=== PATIENT | female | born 1940 | race Caucasian/White ===

== ENCOUNTER 2024-07-26 06:52 | Day surgery (SDC) | payer MEDICARE, OTHER, SELFPAY | END 2024-07-26 09:05 | disposition home or self-care (01) | LOC: CATH 06:52 | PROVIDERS: ATTENDING PHYSICIAN Internal Medicine Cardiovascular Disease; FAMILY PHYSICIAN Nurse Practitioner Adult Health; OTHER PHYSICIAN Internal Medicine Cardiovascular Disease | DX: I48.19 Other persistent atrial fibrillation (principal); I10 Essential (primary) hypertension; E78.5 Hyperlipidemia, unspecified; K21.9 Gastro-esophageal reflux disease without esophagitis; J44.9 Chronic obstructive pulmonary disease, unspecified; Z87.891 Personal history of nicotine dependence; Z85.828 Personal history of other malignant neoplasm of skin; Z79.01 Long term (current) use of anticoagulants | CPT/HCPCS: 93312; 93320; 93325 ==

== ENCOUNTER 2024-08-13 06:20 | Day surgery (SDC) | payer MEDICARE, OTHER, SELFPAY ==
[2024-08-13] VITALS (10 sets, daily range): BP systolic 114–200; BP diastolic 49–101; BMI 22.5
== END 2024-08-13 11:30 | disposition home or self-care (01) ==
LOC: SDS 06:20
PROVIDERS: ATTENDING PHYSICIAN Internal Medicine Critical Care Medicine
DX: R91.1 Solitary pulmonary nodule (principal); J84.09 Other alveolar and parieto-alveolar conditions; R59.0 Localized enlarged lymph nodes
CPT/HCPCS: 31629; 31624; 31623; 31627; 31628; 31652; 31654; 88173; 88305; 71045; 76000; 87015; 87070; 87077; 87102; 87116; 87185; 87205; 88112; 94640; C1887

== ENCOUNTER → 2024-10-31 09:46 | Outpatient (REF) | payer MEDICARE, OTHER, SELFPAY ==
[2024-10-31 10:48] LABS: % Basophils 0.6 % (0-2); % Lymphocytes 20.3 % (20.5-51.1); % Monocytes 7.8 % (1.7-9.3); % Neutrophils 68.3 % (42.2-75.2); Absolute Eosinophils 0.2 10^3/uL (0-0.7); Absolute Monocytes 0.4 10^3/uL (0.1-0.6); Absolute Neutrophils 3.4 10^3/uL (1.4-6.5); Hematocrit 33.6 % (37.0-47.0); Hemoglobin 11.6 g/dL (12.0-16.0); Mean Corp Hgb Conc. 34.5 g/dL (33.0-37.0); Mean Corpuscular Hgb 30.7 pg (27.0-31.0); Mean Corpuscular Volume 88.9 fL (81.0-99.0); Mean Platelet Volume 10.1 fL (7.4-10.4); Nucleated Red Blood Cells % 0 %; Platelet Count 210 10^3/uL (130-400); Red Blood Cell Count 3.78 10^6/uL (4.20-5.40); Red Cell Dist. Width 13.2 % (11.5-14.5)
[2024-10-31 10:54] LABS: INR 1.03
[2024-10-31 11:36] LABS: ALT (SGPT) 21 U/L (0-35); AST (SGOT) 30 U/L (14-36); Albumin 4.5 g/dl (3.5-5.0); Alkaline Phosphatase 88 U/L (38-126); Blood Urea Nitrogen 17 mg/dl (7-17); Calcium 9.7 mg/dl (8.4-10.2); Carbon Dioxide 27 mmol/L (22-30); Chloride 98 mmol/L (98-107); Glucose 103 mg/dl (70-99); Magnesium 1.7 mg/dl (1.6-2.3); Potassium 4.4 mmol/L (3.5-5.1); Sodium 135 mmol/L (135-145); Total Bilirubin 0.7 mg/dl (0.2-1.3); Total Protein 7.8 g/dl (6.3-8.2); eGFR 56.25
== END ==
LOC: SDSPAT 09:46
PROVIDERS: ATTENDING PHYSICIAN Internal Medicine Cardiovascular Disease; FAMILY PHYSICIAN Nurse Practitioner Adult Health; OTHER PHYSICIAN Internal Medicine Cardiovascular Disease
DX: I48.91 Unspecified atrial fibrillation (principal)
CPT/HCPCS: 36415; 80053; 83735; 85025; 85610; 86850; 86900; 86901; 93005

== ENCOUNTER → 2024-11-05 12:16 | Outpatient (REF) | payer MEDICARE, OTHER, SELFPAY | LOC: HWWDC 12:16 | PROVIDERS: ATTENDING PHYSICIAN Internal Medicine Critical Care Medicine; REFERRING PHYSICIAN Nurse Practitioner Adult Health | DX: Z12.31 Encounter for screening mammogram for malignant neoplasm of breast (principal); R91.8 Other nonspecific abnormal finding of lung field | CPT/HCPCS: 71250; 77063; 77067 ==

== ENCOUNTER 2024-11-13 07:52 | Day surgery (SDC) | payer MEDICARE, OTHER, SELFPAY ==
--- NOTE | 2024-11-09 08:57 | HPS.HSE ---
Family Physician
-
Family Physician: NO INTERVIEW UNKNOWN
Chief Complaint
-
Persistent atrial fibrillation.
History of Present Illness
The patient is a 84-year-old female presenting today for persistent atrial fibrillation. The patient reports a wide variety of symptoms associated with this diagnosis. Noted symptoms include palpitations, shortness of breath, fatigue, and
decreased exercise tolerance. She previously underwent a JODY-guided cardioversion in December 2022 secondary to this diagnosis. She is on current pharmacological therapy with Metoprolol Succinate. She reports she has been compliant with Eliquis for oral
anticoagulation due to a [id number] of 4. She notes that her current symptoms greatly interfere with her activities of daily living and overall impact her quality of life. She is interested in pursuing with pulmonary vein isolation for further
arrhythmia management but will proceed first with a transesophageal echocardiogram to officially rule out a left atrial appendage thrombus. She denies any current complaints today such as chest pain and shortness of breath at rest, nausea, vomiting,
diarrhea, lightheadedness, dizziness, cough, sore throat, or fever.
Medical History
Past Medical History
Past Medical History: Reports Other
Additional Past Medical History:
1. Persistent atrial fibrillation, status post JODY-guided cardioversion 12/2022; pharmacological therapy with Metoprolol Succinate and oral anticoagulation with Eliquis.
2. Hypertension, on multi-drug regimen.
3. Hyperlipidemia.
4. Aortic atherosclerosis.
5. Mild-moderate tricuspid regurgitation.
6. COPD per chest x-ray 2018.
7. Bilateral pulmonary nodules on pre-ablation chest CT; recent bronchoscopy negative for malignancy.
8. Interstitial lung disease.
9. Chronic kidney disease stage 3.
10. GERD.
11. Celiac sprue.
12. Basal cell carcinoma, right cheek, status post Mohs.
13. Chronic anemia.
14. Macular degeneration.
15. Osteopenia.
16. Remote history of tobacco abuse.
Past Surgical History: Reports Other
Additional Past Surgical History:
1. JODY-guided cardioversion.
2. Mohs.
3. Oral surgery.
4. Bilateral cataract extraction.
5. Colonoscopy x3.
6. Endoscopy x5.
7. Bronchoscopy.
Social History
Tobacco: Former Smoker (Former 1 pack per day cigarette smoker who quit tobacco altogether remotely. )
Alcohol: Other (Rare use reported.)
Living: With Family (in a 1 story in-law suite.)
Family History
Family History: Not pertinent
Allergies / Home Medications
Allergy/Medication List:
Home medications:
1. Apixaban 2.5 mg p.o. twice a day.
2. Cholecalciferol 25 mcg p.o. daily.
3. Hydrochlorothiazide 25 mg p.o. daily.
4. Lisinopril 40 mg p.o. daily.
5. Metoprolol Succinate 25 mg p.o. every evening.
6. Multivitamin 1 tablet p.o. daily.
7. Omeprazole 20 mg p.o. daily.
8. Rosuvastatin 5 mg p.o. every evening.
9. PreserVision 1 tablet p.o. twice a day.
Allergies: Penicillin. Gluten. Reeves juice.
Review of Systems
-
A 12 point ROS was completed and negative except as noted: Yes
Physical Exam
Vital Signs
Blood pressure 164/84. Heart rate 77. Respirations 18. Pulse ox 99% on room air.
Height 5 feet, 3 inches. Weight 57.2 kg. BMI 22.3.
Physical Exam
General: Well Developed, Well Nourished and No Apparent Distress
HEENT: NormoCephalic, Moist mucous membranes and Atraumatic
Respiratory: Clear
Cardiac: Irregular Rhythm
GI: Soft, Non Tender and Non Distended
Musculoskeletal: No Edema and Normal Gait & Station
Skin: Warm and Dry
Neuro: AO x 3 and Nonfocal/grossly intact
Laboratory Results
-
DIAGNOSTIC STUDIES of 10/31/2024: White blood cell count 5.0. Hemoglobin 11.6. Platelet count 210,000. PT 14.0. INR 1.03. Sodium 135. Potassium 4.4. BUN 17. Creatinine 1.0. Glucose 103. Calcium 9.7. Magnesium 1.7. AST 30. ALT 21. Albumin 4.5. Type
and screen O positive.
EKG 10/31/2024: Atrial fibrillation. Nonspecific T wave abnormality.
Impression/Plan
-
IMPRESSION/PLAN:
1. Persistent atrial fibrillation: The patient is in need of pulmonary vein isolation for further arrhythmia management. Prior to her ablation, she will first undergo a pre-procedural transesophageal echocardiogram with Dr. Prince Ewing on 11/13/2024
to officially rule out a left atrial appendage thrombus. The benefits and risks the procedure have been explained to the patient. The patient understands these risks and is willing to proceed. She is aware to continue compliance with her Eliquis
prior to her procedure.
== END 2024-11-13 09:30 | disposition home or self-care (01) ==
LOC: CATH 07:52
PROVIDERS: ATTENDING PHYSICIAN Nuclear Medicine Nuclear Cardiology; FAMILY PHYSICIAN Nurse Practitioner Adult Health; OTHER PHYSICIAN Internal Medicine Cardiovascular Disease
DX: I48.19 Other persistent atrial fibrillation (principal); I08.3 Combined rheumatic disorders of mitral, aortic and tricuspid valves; I70.0 Atherosclerosis of aorta; E78.5 Hyperlipidemia, unspecified; I12.9 Hypertensive chronic kidney disease with stage 1 through stage 4 chronic kidney disease, or unspecified chronic kidney disease; J44.9 Chronic obstructive pulmonary disease, unspecified; M85.80 Other specified disorders of bone density and structure, unspecified site; N18.30 Chronic kidney disease, stage 3 unspecified; Z79.01 Long term (current) use of anticoagulants; Z79.899 Other long term (current) drug therapy; Z85.828 Personal history of other malignant neoplasm of skin; Z88.0 Allergy status to penicillin; Z87.891 Personal history of nicotine dependence; K90.0 Celiac disease; H35.30 Unspecified macular degeneration; K21.9 Gastro-esophageal reflux disease without esophagitis; J84.9 Interstitial pulmonary disease, unspecified
CPT/HCPCS: 93312; 93320; 93325

== ENCOUNTER 2024-11-14 08:23 | Day surgery (SDC) | payer MEDICARE, OTHER, SELFPAY ==
[2024-10-31 09:58] VITALS: BMI 22.3
--- NOTE | 2024-10-31 10:27 | HPS.HSE ---
Family Physician
-
Family Physician: NO INTERVIEW UNKNOWN
Chief Complaint
-
Persistent atrial fibrillation.
History of Present Illness
The patient is a 84-year-old female presenting today for persistent atrial fibrillation. The patient reports a wide variety of symptoms associated with this diagnosis. Noted symptoms include palpitations, shortness of breath, fatigue, and
decreased exercise tolerance. She previously underwent a JODY-guided cardioversion in December 2022 secondary to this diagnosis. She is on current pharmacological therapy with Metoprolol Succinate. She reports she has been compliant with Eliquis for oral
anticoagulation due to a [id number] of 4. She notes that her current symptoms greatly interfere with her activities of daily living and overall impact her quality of life. She is interested in pursuing with pulmonary vein isolation for further
arrhythmia management. She was initially scheduled for this procedure in July 2024; however, she was noted to have numerous bilateral pulmonary nodules on her pre-ablation chest CT. Fortunately, she has been evaluated by pulmonary. Her most
recent bronchoscopy was negative for malignancy. She denies any current complaints today such as chest pain and shortness of breath at rest, nausea, vomiting, diarrhea, lightheadedness, dizziness, cough, sore throat, or fever.
Medical History
Past Medical History
Past Medical History: Reports Other
Additional Past Medical History:
1. Persistent atrial fibrillation, status post OJDY-guided cardioversion 12/2022; pharmacological therapy with Metoprolol Succinate and oral anticoagulation with Eliquis.
2. Hypertension, on multi-drug regimen.
3. Hyperlipidemia.
4. Aortic atherosclerosis.
5. Mild-moderate tricuspid regurgitation.
6. COPD per chest x-ray 2018.
7. Bilateral pulmonary nodules on pre-ablation chest CT; recent bronchoscopy negative for malignancy.
8. Interstitial lung disease.
9. Chronic kidney disease stage 3.
10. GERD.
11. Celiac sprue.
12. Basal cell carcinoma, right cheek, status post Mohs.
13. Chronic anemia.
14. Macular degeneration.
15. Osteopenia.
16. Remote history of tobacco abuse.
Past Surgical History: Reports Other
Additional Past Surgical History:
1. JODY-guided cardioversion.
2. Mohs.
3. Oral surgery.
4. Bilateral cataract extraction.
5. Colonoscopy x3.
6. Endoscopy x5.
7. Bronchoscopy.
Social History
Tobacco: Former Smoker (Former 1 pack per day cigarette smoker who quit tobacco altogether remotely. )
Alcohol: Other (Rare use reported. )
Living: With Family (in a 1 story in-law suite.)
Family History
Family History: Not pertinent
Allergies / Home Medications
Allergy/Medication List:
Home medications:
1. Apixaban 2.5 mg p.o. twice a day.
2. Cholecalciferol 25 mcg p.o. daily.
3. Hydrochlorothiazide 25 mg p.o. daily.
4. Lisinopril 40 mg p.o. daily.
5. Metoprolol Succinate 25 mg p.o. every evening.
6. Multivitamin 1 tablet p.o. daily.
7. Omeprazole 20 mg p.o. daily.
8. Rosuvastatin 5 mg p.o. every evening.
9. PreserVision 1 tablet p.o. twice a day.
Allergies: Penicillin. Gluten. Carter juice.
Review of Systems
-
A 12 point ROS was completed and negative except as noted: Yes
Physical Exam
Vital Signs
Blood pressure 164/84. Heart rate 77. Respirations 18. Pulse ox 99% on room air.
Height 5 feet, 3 inches. Weight 57.2 kg. BMI 22.3.
Physical Exam
General: Well Developed, Well Nourished and No Apparent Distress
HEENT: NormoCephalic, Moist mucous membranes and Atraumatic
Respiratory: Clear
Cardiac: Irregular Rhythm
GI: Soft, Non Tender and Non Distended
Musculoskeletal: No Edema and Normal Gait & Station
Skin: Warm and Dry
Neuro: AO x 3 and Nonfocal/grossly intact
Laboratory Results
-
DIAGNOSTIC STUDIES of 10/31/2024: White blood cell count 5.0. Hemoglobin 11.6. Platelet count 210,000. PT 14.0. INR 1.03. Sodium 135. Potassium 4.4. BUN 17. Creatinine 1.0. Glucose 103. Calcium 9.7. Magnesium 1.7. AST 30. ALT 21. Albumin 4.5. Type
and screen O positive.
EKG 10/31/2024: Atrial fibrillation. Nonspecific T wave abnormality.
Impression/Plan
-
IMPRESSION/PLAN:
1. Persistent atrial fibrillation: The patient is in need of pulmonary vein isolation with Dr. Derick Pagan on 11/14/2024. Prior to undergoing her ablation, she will undergo a pre-procedural transesophageal echocardiogram with Dr. Prince Ewing on
11/13/2024 to officially rule out a left atrial appendage thrombus. The benefits and risks of both procedures have been explained to the patient. The patient understands these risks and is willing to proceed. She is aware to continue compliance with
her Eliquis prior to her procedure. She will take no medications the morning of her ablation.
2. Bilateral pulmonary nodules on pre-ablation chest CT: As stated previously, her recent bronchoscopy in August 2024 was negative for malignancy. She did undergo a repeat chest CT on 11/05/2024 as advised by her concrete handler, Dr Gabi Mcclure.
Her imaging was overall stable with only mild changes noted. She is able to proceed with her ablation as planned. She plans to follow-up with Dr. Mcclure after her procedure.
[2024-11-14] VITALS (13 sets, daily range): BP systolic 128–191; BP diastolic 50–99
--- NOTE | 2024-11-14 08:47 | ITS.CL.ABL ---
Nursing Surgical Services Director - Ablation
Ablation
Procedure Report:
Primary Market Research Intern: Sb Monsalve MD
Procedure Date: 11/14/2024
Patient History:
Patient is a pleasant 84-year-old female with a past medical history significant for hypertension, hyperlipidemia, symptomatic persistent atrial fibrillation, and GERD.
See H&P for complete details.
Indication:
Symptomatic persistent atrial fibrillation
Early recurrence following cardioversion
Arrhythmia Specific History:
Prior Medical Therapies for Rate and Rhythm Control:
X Beta-theodore
[ ] Calcium channel-theodore
[ ] Amiodarone
[ ] Dronederone
[ ] Sotalol
[ ] Flecainide
[ ] Dofetilide
[ ] Options limited by bradycardia
[ ] Options limited by comorbid renal disease
Prior Procedural Therapies for AF/AFL:
X Cardioversion
[ ] Pulmonary Vein Isolation
[ ] Posterior Wall Isolation
[ ] Additional lines (Specify)
[ ] Surgical Krueger-MAZE or PVI (Specify)
Procedure Performed:
X AF ablation procedure (85350) -- includes LA/CS pacing, trans-septal, 3D mapping, + ICE
[ ] +IV drug (74956)
[ ] +Other Arrhythmia (39989)
X +Other AF Line/ablation (81857) - Floor, Roof, Posterior wall PFA
Risks and expected recovery has been explained in detail. Alternative options have been explored, and in a shared-decision making fashion we have decided that this was the most appropriate procedure.
Method
NPO status confirmed. Grounding pad applied. Defibrillator pads applied. Continuous surface ECG, pulse oximetry, and blood pressure were monitored. Procedure was performed under general anesthesia, with anesthesia services.
Both groins were clipped, prepped with Chloraprep, and draped in sterile fashion. Time out was called. Local anesthesia administered with bupivacaine. The right femoral vein was accessed for catheter placement, using ultrasound guidance (images
saved to record), micro-puncture needle/wire, and modified seldinger technique. 3 sheaths were placed. The following catheters were used:
[ ] Tacticath SE (D/F Curve) ablation catheter
X Viewflex 9Fr ICE catheter
X Inquiry decapolar 6Fr diagnostic catheter
[ ] CRD Hex 6Fr
[ ] Arctic Front Advance Cryoballoon ([ ]28mm[ ]23mm)
[ ] Achieve Advance mapping catheter ([ ]15mm[ ]20mm)
X FlexCath Contour 10 Fr with PulseSelect PFA Catheter
x Advisor HD Grid Mapping Catheter, SE
[ ] AcusMWHS AcuNav 8 Fr ICE catheter
[ ]Other: [ ]
Intracardiac ultrasound (ICE) was carefully advanced into the right atrium to guide sheath placement over a J-wire, catheter placement, guide trans-septal puncture, identify potential complications, identify anatomic structures and ensure proper
contact between ablation catheter and tissue.
Heparin was given prior to trans-septal puncture. Heparin was given to achieve and maintain a target ACT of 300-400 seconds throughout the procedure.
Trans-septal access was performed under ICE guidance. The trans-septal puncture was performed with a SafeSept wire through a Brockenbrough needle assembly through the steerable sheath. The wire was visualized as it entered the LSPV and system
advanced under ICE guidance and fluoroscopy into the LA. The Brockenbrough needle assembly, SafeSept wire and sheath dilator were removed under negative pressure. LA pressure was measured and recorded.
ICE and 3D mapping was performed to identify relevant cardiac structures. A careful 3D map was created to assess for regions of low-voltage and abnormal electrogram signals using HD grid mapping catheter and PulseSelect catheter. Additional mapping
was performed as outlined below.
Prior to ablation, glycopyrrolate was provided. PulseSelect catheter was advanced over J-wire to the ostium of each vein. Left common vein was noted by CT, ICE, EAM. Pulmonary vein isolation was performed with ostial and antral lesions in a
circumferential manner. Contact was visualized via EAM, ICE, fluoroscopy, and EGM signals. Posterior wall isolation was performed by anchoring the J-wire within the pulmonary vein and placing the PulseSelect catheter in contact with the posterior
wall as visualized by aforementioned methods. Following completion of ablation lesions, sinus rhythm was restored with a 200J synchronized DCCV and a post-ablation voltage/activation map was performed in atrial pacing. Entrance block were confirmed
for each vein and the posterior wall. Electroanatomic mapping demonstrating no voltage within veins and posterior wall. Patient initially noted to be junctional bradycardia following cardioversion with return of sinus bradycardia.
Catheter and sheath were removed from the left atrium and post-ablation intracardiac echo evaluation was consistent with pre-ablation with no changes and no pericardial effusion and there is no left atrial thrombus or left ventricle thrombus seen.
Electrophysiology study was performed. Hemostasis was obtained with figure of 8 stitch for each groin and with manual pressure. Protamine was used for reversal.
Estimated Blood Loss
10 mL
Complications
None
Fluoroscopy: 3.4 minutes; 22.18 mGy; DAP 2.96
LA Pressure: Pre 12 mmHg, post 19 mmHg
Baseline Intervals:
Rhythm: AF
QRS: 79 ms
QT: 279 ms
Post-Procedure Intervals:
IL: 150 ms
QRS: 94 ms
QT: 536 ms
QTc: 516 ms
AVWB: 410 ms
Recommendations
- Bedrest with straight-leg precautions as ordered
- Anticipate same day discharge if patient meeting clinical metrics
- Resume home medications as indicated
- Ok to resume anticoagulation tonight if patient and groin sites stable
- PPI daily for 30 days
- Plan for follow-up in office as scheduled
Derick Pagan DO, [facility], [facility]
Clinical Cardiac Commutator Undercutter
cc:Dr Sb Monsalve; DOROTHEA Diaz
[2024-11-14] MEDS: TYLENOL 1000 MG PO (09:34)
[2024-11-14 11:08] LABS: ACT-LR - POC 289 Seconds (116-155)
[2024-11-14 11:29] LABS: ACT-LR - POC 316 Seconds (116-155)
[2024-11-14 11:55] LABS: ACT-LR - POC 345 Seconds (116-155)
[2024-11-14 12:25] LABS: ACT-LR - POC 179 Seconds (116-155)
[2024-11-14] MEDS: LASIX 20 MG IV (13:44)
--- NOTE | 2024-11-14 17:12 | W.PN.UPDATE ---
Update Note
Progress Note Update
84 yo WF s/p PVI (Same day). She denies cp, sob, pollo diet, voiding, R fem site c/d/i no HT, soft, EKG SR with frequent PAC's. She will resume Eliquis tonight. She had some bradycardia and we will hold metoprolol until tuesday. Activity restrictions
reviewed. She will f/u Dr. Huerta in 3 mo. She is for d/c home after 530p.
--- NOTE | 2024-11-14 17:15 | PTCARENOTE ---
Discussed BP trending up to SBP 170s with last 2 readings with Laya PIEDRA. No new orders. OUTREACH ASSOCIATE gave instructions to have the pt take her doses of lisinopril and HCTZ when she gets home- pt informed.
== END 2024-11-14 17:35 | disposition home or self-care (01) ==
LOC: CATH 08:23
PROVIDERS: ATTENDING PHYSICIAN Internal Medicine Cardiovascular Disease; FAMILY PHYSICIAN Nurse Practitioner Adult Health; OTHER PHYSICIAN Internal Medicine Cardiovascular Disease
DX: I48.19 Other persistent atrial fibrillation (principal); I12.9 Hypertensive chronic kidney disease with stage 1 through stage 4 chronic kidney disease, or unspecified chronic kidney disease; E78.5 Hyperlipidemia, unspecified; I70.0 Atherosclerosis of aorta; I08.2 Rheumatic disorders of both aortic and tricuspid valves; R91.8 Other nonspecific abnormal finding of lung field; J44.9 Chronic obstructive pulmonary disease, unspecified; J84.9 Interstitial pulmonary disease, unspecified; K90.0 Celiac disease; K21.9 Gastro-esophageal reflux disease without esophagitis; Z85.828 Personal history of other malignant neoplasm of skin; H35.30 Unspecified macular degeneration; D64.9 Anemia, unspecified; Z87.891 Personal history of nicotine dependence; M85.80 Other specified disorders of bone density and structure, unspecified site; I49.1 Atrial premature depolarization; N18.30 Chronic kidney disease, stage 3 unspecified; Z79.899 Other long term (current) drug therapy; Z79.01 Long term (current) use of anticoagulants; Z88.0 Allergy status to penicillin
CPT/HCPCS: C1732; C1894; C1730; C1769; C1733; C1766; 85347; 93005; 93656; 93657